=== PATIENT | female | born 1950 | race Caucasian/White ===

== ENCOUNTER 2016-10-17 10:20 | Emergency (ER) | payer OTHER ==
[~2016-10-17] VITALS: Ht 161.3 cm; Wt 73.9 kg
[2016-10-17] MEDS ORDERED: CLAR10CA3 PO (10:31)
[2016-10-17] MEDS ORDERED: ZOLO50TA PO (10:31)
[2016-10-17] MEDS ORDERED: ATOR1TAB19 PO (10:31)
--- NOTE | 2016-10-17 11:04 | REP ---
Clinical: Trauma . Findings: Age-related atrophy and microvascular ischemic changes are appreciated. The ventricles and sulci are symmetric. Ramos-white differentiation is maintained. There is no evidence for acute intracranial hemorrhage, mass/mass effect, pathology or infarction. No extra-axial fluid collection. Calvarium is intact. Partial opacification of the sinuses noted. There is a very small scalp hematoma overlying the left occipital bone posteriorly. Impression: Age related atrophy and microvascular ischemic changes. No acute intracranial hemorrhage, infarction, or mass/mass effect. This is a partial sinusitis. Very small posterior left scalp hematoma. Signed by Michael Vargas MD 10/17/2016 10:55 A
--- NOTE | 2016-10-17 11:07 | REP ---
Clinical: Trauma. Technique: Axial noncontrast images from the skull base to the thoracic inlet with coronal and sagittal re-formations Findings: Normal alignment and lordosis is maintained. This moderate early advanced multilevel degenerative disc osteophyte complexes are noted. Cervical vertebral bodies including transverse processes and spinous processes are intact and there is no evidence for acute fracture / compression injury or subluxation. Spinal canal is patent. Posterior elements are intact. Paravertebral soft tissues are normal. Impression: Moderate to early advanced multilevel degenerative changes. No evidence for acute pathology or trauma/injury. Signed by Michael Vargas MD 10/17/2016 10:58 A
--- NOTE | 2016-10-17 11:27 | ED PDOC ---
Post-Departure Follow-Up 2 gilmar were placed after irrigation of wound by nursing. The patient tolerated procedure well. Wound is about 2 cm in length, bleeding controlled. Wound irrigated moderately by nursing. CHERELLE PEARL MD Oct 17, 2016 11:27
[2016-10-17] MEDS ORDERED: ACETAMINOPHEN TAB 650MG DOSE (2X325MG) PO ONE (11:30)
[2016-10-17 11:37] VITALS: BP 144/62
== END 2016-10-17 11:39 | disposition home or self-care (01) ==
LOC: EDBD 10:20 → M ED 11:33
DX: S01.01XA Laceration without foreign body of scalp, initial encounter (principal); W01.198A Fall on same level from slipping, tripping and stumbling with subsequent striking against other object, initial encounter; Y92.091 Bathroom in other non-institutional residence as the place of occurrence of the external cause; Y93.01 Activity, walking, marching and hiking; Y99.9 Unspecified external cause status

== ENCOUNTER → 2018-04-18 | Outpatient (REF) | payer MEDICARE, OTHER ==
[2018-04-18 19:39] LABS: RHEUMATOID FACTOR QUANT < 10.0 IU/ML (<15.0)
[2018-04-20 14:20] LABS: ANTI DOUBLE STRAND-DNA AB 6 IU/mL (0-9); ANTINUCLEAR ANTIBODIES DIRECT Positive (Negative); Lyme Disease IgG/IgM Antibodie <0.91 ISR (0.00-0.90); Lyme Disease IgM Ab Quantitati <0.80 index (0.00-0.79); RNP ANTIBODIES <0.2 AI (0.0-0.9); SJOGREN'S ANTI SS-A <0.2 AI (0.0-0.9); SJOGREN'S ANTI SS-B <0.2 AI (0.0-0.9); SMITH ANTIBODIES <0.2 AI (0.0-0.9)
[2018-04-21 00:10] LABS: CYCLIC CITRULLINATED PEPTIDE 16 units (0-19)
== END ==
LOC: M LAB REF 18:43
DX: M25.50 Pain in unspecified joint (principal); R73.01 Impaired fasting glucose; S70.261A Insect bite (nonvenomous), right hip, initial encounter; W18.30XA Fall on same level, unspecified, initial encounter; Y92.009 Unspecified place in unspecified non-institutional (private) residence as the place of occurrence of the external cause
CPT/HCPCS: 86038

== ENCOUNTER → 2018-05-20 | Outpatient (CLI) | payer MEDICARE | LOC: M RAD 10:01 | DX: Z12.31 Encounter for screening mammogram for malignant neoplasm of breast (principal) | CPT/HCPCS: 77067 ==

== ENCOUNTER → 2018-09-13 | Outpatient (CLI) | payer MEDICARE ==
[~2018-09-13] MED LIST: ATOR1TAB19 PO; CLAR10CA3 PO; ZOLO50TA PO
[2018-09-13 15:45] LABS: BASO # 0.1 10^3/uL (0.0-0.2); BASO % 0.6 % (0.0-1.0); EOS # 0.2 10^3/uL (0.0-0.50); EOS % 2.8 % (0.0-3.0); HEMATOCRIT 44.2 % (36.0-47.0); HEMOGLOBIN 14.1 g/dl (12.0-15.5); LYMPH # 2.6 10^3/uL (1.5-4.5); LYMPH % 32.7 % (24.0-44.0); MEAN CORPUSCULAR HEMOGLOBIN 28.7 pg (27.0-33.0); MEAN CORPUSCULAR HGB CONC 31.9 g/dl (32.0-36.5); MONO # 0.4 10^3/uL (0.0-0.8); MONO % 4.7 % (0.0-5.0); NEUTROPHILS # 4.7 10^3/uL (1.8-7.7); NEUTROPHILS % 58.9 % (36.0-66.0); PLATELET COUNT, AUTOMATED 321 10^3/uL (150-450); RED BLOOD COUNT 4.91 10^6/uL (4.00-5.40); WHITE BLOOD COUNT 7.9 10^3/uL (4.0-10.0)
--- NOTE | 2018-09-13 15:57 | REP ---
Chest two views HISTORY: Wheezing Comparison: None An increase in interstitial markings is present in the perihilar areas. The heart is normal in size. The pulmonary vasculature is normal in appearance. The bony structure is intact. IMPRESSION: Bronchiolitis. Electronically Signed by Shivam Groves MD 09/13/2018 03:50 P
[2018-09-13 16:05] LABS: ALT/SGPT 26 U/L (12-78); BILIRUBIN,TOTAL 0.6 MG/DL (0.2-1.0); BLOOD UREA NITROGEN 19 MG/DL (7-18); C REACTIVE PROTEIN QUANTITATIV < 0.30 MG/DL (0.00-0.30); CALCIUM LEVEL 9.3 MG/DL (8.8-10.2); CARBON DIOXIDE LEVEL 29 MEQ/L (21-32); CHLORIDE LEVEL 107 MEQ/L (98-107); CREATININE FOR GFR 0.74 MG/DL (0.55-1.30); GLOMERULAR FILTRATION RATE > 60.0 (>45); GLUCOSE, FASTING 89 MG/DL (70-100); POTASSIUM SERUM 4.4 MEQ/L (3.5-5.1); RHEUMATOID FACTOR QUANT < 10.0 IU/ML (<15.0); SODIUM LEVEL 141 MEQ/L (136-145); TOTAL PROTEIN 7.2 GM/DL (6.4-8.2)
[2018-09-13 16:13] LABS: ERYTHROCYTE SEDIMENTATION RATE 8 mm/hr (0-30)
[2018-09-16 00:09] LABS: ANA (HEP2) Positive (.)
== END ==
LOC: M LAB 14:54
PROVIDERS: ATTEND Internal Medicine Rheumatology
DX: M19.071 Primary osteoarthritis, right ankle and foot (principal); M19.072 Primary osteoarthritis, left ankle and foot; M25.774 Osteophyte, right foot; M25.775 Osteophyte, left foot; M25.50 Pain in unspecified joint; R76.8 Other specified abnormal immunological findings in serum
CPT/HCPCS: 36415; 73630; 80053; 85025; 85652; 86038; 86140; 86431; G0463

== ENCOUNTER → 2019-06-13 | Outpatient (CLI) | payer MEDICARE ==
--- NOTE | 2019-06-13 12:06 | REPMRS ---
Patient History The patient states she has not had a clinical breast exam in over a year. Family history of colorectal cancer at age 50 or over in maternal grandfather. Patient had a stereo breast bx years ago, doesn't remember which side 3D TOMOSYNTHESIS WAS PERFORMED. The [facility] Benavides lifetime risk for breast cancer is 5.1%. Digital Mammo Screening Bilat: June 13, 2019 - Exam #: [id number] Bilateral CC and MLO view(s) were taken. Technologist: Stephany Osuna, Technologist Prior study comparison: May 20, 2018, bilateral digital mammo screening bilat performed at [facility]. May 19, 2017, digital woman screen mammo, performed at [facility]. FINDINGS: The breast tissue is heterogeneously dense. This may lower the sensitivity of mammography. There has been no change in the appearance of the mammogram from the prior studies. There is a moderate amount of residual fibroglandular tissue which is fairly symmetric. There is no interval development of dominant mass, areas of architectural distortion, or clustered microcalcification typical of malignancy. Stable benign appearing calcifications are present on the right. No significant changes when compared with prior studies. Assessment: BI-RADS/ACR category 1 mammogram. Negative Mammogram. Recommendation Routine screening mammogram in 1 year (for women over age 40). This mammogram was interpreted with the aid of an FDA-approved computer-aided dectection system. Electronically Signed By: Sarath Ramos MD 06/13/19 [id number]
== END ==
LOC: M RAD 10:43
PROVIDERS: ATTEND Internal Medicine
DX: Z12.31 Encounter for screening mammogram for malignant neoplasm of breast (principal); Z80.0 Family history of malignant neoplasm of digestive organs

== ENCOUNTER → 2019-08-18 | Outpatient (REF) | payer MEDICARE ==
[2019-08-22 00:06] LABS: Lyme Disease IgG/IgM Antibodie <0.91 ISR (0.00-0.90); Lyme Disease IgM Ab Quantitati <0.80 index (0.00-0.79)
== END ==
LOC: M LAB REF 17:50
PROVIDERS: ATTEND Internal Medicine
DX: Z11.59 Encounter for screening for other viral diseases (principal)

== ENCOUNTER → 2020-01-18 | Outpatient (REF) | payer MEDICARE | LOC: M LAB REF 17:04 | PROVIDERS: ATTEND Dermatology | DX: D22.72 Melanocytic nevi of left lower limb, including hip (principal); L57.0 Actinic keratosis | CPT/HCPCS: 11102; 11103; 11200; 17000; 17003; 88305; G0463 ==

== ENCOUNTER → 2020-06-12 | Outpatient (CLI) | payer MEDICARE ==
--- NOTE | 2020-06-12 14:09 | REPMRS ---
Patient History The patient states she has not had a clinical breast exam in over a year. Patient has history of other cancer at age 61. Family history of colorectal cancer at age 50 or over in maternal grandfather. Benign stereotactic core biopsy of the right breast, December 26, 2007. No Hormone Replacement Therapy 3D TOMOSYNTHESIS WAS PERFORMED. The [facility] lifetime risk for breast cancer is 4.8%. Volpara breast density b. Digital Woman Screen Mammo: June 12, 2020 - Exam #: [id number] Bilateral CC and MLO view(s) were taken. Technologist: Deandra Pina, Technologist Prior study comparison: June 13, 2019, bilateral digital mammo screening bilat, performed at [facility]. May 20, 2018, bilateral digital mammo screening bilat, performed at [facility]. FINDINGS: There are scattered fibroglandular densities. There has been no change in the appearance of the mammogram from the prior studies. There is a mild amount of residual fibroglandular tissue which is fairly symmetric. There is no interval development of dominant mass, architectural distortion, or clustered microcalcification suggestive of malignancy. Assessment: BI-RADS/ACR category 1 mammogram. Negative Mammogram. Recommendation Routine screening mammogram in 1 year (for women over age 40). This mammogram was interpreted with the aid of an FDA-approved computer-aided dectection system. Electronically Signed By: Sarath Ramos MD 06/12/20 0509
--- NOTE | 2020-06-12 15:45 | DEXA ---
INDICATION: M85.80 DISORDER OF BONE. COMPARISON: 05/19/2017. TECHNIQUE: Bone density was measured using dual-energy x-ray absorptiometry (DEXA). FINDINGS: AP SPINE L1-L4 BMD 1.241 g/cm2 Young Adult T-Score 0.4 Age Matched Z-Score 2.0. LT FEMUR, TOTAL BMD 1.033 g/cm2 Young Adult T-Score 0.2 Age Matched Z-Score 1.5. LT NECK BMD 0.863 g/cm2 Young Adult T-Score -1.3 Age Matched Z-Score 0.3. RT FEMUR, TOTAL BMD 1.00 g/cm2 Young Adult T-Score -0.1 Age Matched Z-Score 1.3. RT NECK BMD 0.847 g/cm2 Young Adult T-Score -1.4 Age Matched Z-Score 0.2. IMPRESSION: There is normal bone density of the spine. There is low bone density of the left hip. There is low bone density of the right hip. The density of the spine has decreased 2.1% since the initial exam on 05/19/2017. The density of the left hip has increased 3.8% since initial exam on 05/19/2017. The density of the right hip has decreased 2.3% since the initial exam on 05/19/2017. FOLLOW-UP: Recommendation for the next bone density exam: 2 years. <Electronically signed by Sarath Ramos > 06/12/20 [id number]
== END ==
LOC: M WHC 12:30
PROVIDERS: ATTEND Internal Medicine
DX: Z12.31 Encounter for screening mammogram for malignant neoplasm of breast (principal); Z80.0 Family history of malignant neoplasm of digestive organs; M85.811 Other specified disorders of bone density and structure, right shoulder; M85.852 Other specified disorders of bone density and structure, left thigh

== ENCOUNTER → 2020-06-13 | Outpatient (REF) | payer MEDICARE | LOC: M LAB REF 16:18 | PROVIDERS: ATTEND Internal Medicine | DX: M25.551 Pain in right hip (principal) ==

== ENCOUNTER → 2020-11-22 | Outpatient (CLI) | payer MEDICARE ==
--- NOTE | 2020-11-22 12:37 | REP ---
INDICATION: PAIN COMPARISON: None. TECHNIQUE: AP and lateral left femur. FINDINGS: There is no evidence of acute fracture, dislocation, or intrinsic bone disease.There is mild joint space narrowing and subchondral sclerosis at the hip joint and the medial knee joint. Mild tendinous calcifications are seen at the greater trochanter, ilium and ischium. IMPRESSION: No fracture or dislocation. Mild degenerative changes hip and knee. <Electronically signed by Sarath Ramos > 11/22/20 [id number]
--- NOTE | 2020-11-22 12:42 | REP ---
INDICATION: PAIN COMPARISON: 09/13/2018. TECHNIQUE: Four views left foot. FINDINGS: There is no evidence of acute fracture, dislocation, or intrinsic bone disease.There is mild inferior calcaneal spurring. There is mild dorsal navicular spurring. Mild narrowing and subchondral sclerosis at the 1st metatarsophalangeal joint, with mild hypertrophic spurring and subcortical cystic change again seen in the head of the 1st metatarsal. IMPRESSION: No fracture or dislocation. Stable degenerative changes. <Electronically signed by Sarath Ramos > 11/22/20 1236
== END ==
LOC: M WUC 11:17
PROVIDERS: ATTEND Internal Medicine
DX: M25.552 Pain in left hip (principal); M25.572 Pain in left ankle and joints of left foot; M77.32 Calcaneal spur, left foot; M19.072 Primary osteoarthritis, left ankle and foot; M16.12 Unilateral primary osteoarthritis, left hip; M17.12 Unilateral primary osteoarthritis, left knee

== ENCOUNTER 2020-12-01 13:19 | Emergency (ER) | payer MEDICARE ==
[2020-12-01] MEDS ORDERED: MONT10TA10 PO (13:38)
[2020-12-01] MEDS ORDERED: PRED20TA PO (13:38)
[2020-12-01] MEDS ORDERED: ROSU5TAB5 PO (13:38)
[2020-12-01] MEDS ORDERED: MORPHINE 2 MG/ML 1ML VIAL (J2270) IV PRN (13:45)
[2020-12-01] MEDS ORDERED: NITROGLYCERIN 0.4 MG SUBL TABLET SL PRN (13:45)
[2020-12-01 13:50] LABS: BASO % 0.5 % (0.0-1.0); EOS # 0.2 10^3/uL (0.0-0.5); EOS % 1.8 % (0.0-3.0); HEMATOCRIT 44.6 % (36.0-47.0); HEMOGLOBIN 14.4 g/dl (12.0-15.5); LYMPH # 2.6 10^3/uL (1.5-5.0); LYMPH % 31.2 % (24.0-44.0); MEAN CORPUSCULAR HEMOGLOBIN 29.4 pg (27.0-33.0); MEAN CORPUSCULAR HGB CONC 32.3 g/dl (32.0-36.5); MEAN CORPUSCULAR VOLUME 91.2 fl (80.0-96.0); MONO # 0.4 10^3/uL (0.0-0.8); MONO % 5.1 % (2.0-8.0); NEUTROPHILS # 5.1 10^3/uL (1.5-8.5); PLATELET COUNT, AUTOMATED 340 10^3/uL (150-450); RED BLOOD COUNT 4.89 10^6/uL (4.00-5.40); WHITE BLOOD COUNT 8.4 10^3/uL (4.0-10.0)
[2020-12-01 14:01] LABS: INR 0.89; PROTHROMBIN TIME 12.2 SECONDS (12.5-14.3)
[2020-12-01 14:02] LABS: PARTIAL THROMBOPLASTIN TIME 24.7 SECONDS (24.2-38.5)
--- NOTE | 2020-12-01 14:11 | REP ---
INDICATION: CHEST PAIN. COMPARISON: None. TECHNIQUE: Portable FINDINGS: The technique utilized in obtaining the radiograph has magnified the cardiac silhouette and accentuated the interstitial markings. The superior mediastinal structures are midline. The cardiac silhouette is unremarkable in size, shape, and position. The diaphragmatic surfaces of the lungs are regular, and the costophrenic angles are clear. The pulmonary dominguez are clear. The imaged osseous structures are intact. IMPRESSION: There is no acute cardiopulmonary disease. <Electronically signed by Chay Mclaughlin > 12/01/20 [id number]
[2020-12-01 14:33] LABS: BLOOD UREA NITROGEN 16 MG/DL (7-18); CALCIUM LEVEL 8.9 MG/DL (8.8-10.2); CARBON DIOXIDE LEVEL 29 MEQ/L (21-32); CHLORIDE LEVEL 110 MEQ/L (98-107); CK-MB VALUE MASS < 1.0 NG/ML (<3.6); CPK CREATINE PHOSPHOKINASE 100 U/L (26-192); CREATININE FOR GFR 0.57 MG/DL (0.55-1.30); GLOMERULAR FILTRATION RATE > 60.0 (>45); GLUCOSE, FASTING 92 MG/DL (70-100); POTASSIUM SERUM 3.2 MEQ/L (3.5-5.1); SODIUM LEVEL 143 MEQ/L (136-145); TROPONIN I < 0.02 NG/ML (< 0.10)
[2020-12-01] MEDS ORDERED: POTASSIUM CHLORIDE 10 MEQ SR TABLET PO ONE (14:40)
[2020-12-01] MEDS ORDERED: ISOVUE-370 76% 100ML VIAL As Ordered ONE (14:57)
[2020-12-01] MEDS ORDERED: OMEP40CA97 PO (15:14)
--- NOTE | 2020-12-01 15:30 | REP ---
INDICATION: CP r/o dissection COMPARISON: None. TECHNIQUE: CT angiography of the chest attention aorta after the intravenous administration of 75 cc Isovue 370 FINDINGS: Menlo artifact is seen arising from the inferior vena cava secondary to high concentration of iodinated intravenous contrast. This causes limitation of evaluation of the ascending aorta and aortic arch. With that There is excellent visualization of the pulmonary arterial vasculature as well. No focal filling defects are present that would be considered consistent with acute pulmonary emboli. There is no mediastinal or hilar adenopathy. There no pleural or pericardial effusions. The imaged upper abdomen and imaged osseous structures are within normal limits. Evaluation of the lung dominguez shows no abnormal nodules, masses, or opacities. Exception, there is no evidence of an intrathoracic aortic abnormality. IMPRESSION: CT findings, as described above, within normal limits with limitations as described above. <Electronically signed by Chay Mclaughlin > 12/01/20 [id number]
[2020-12-01 20:11] LABS: CK-MB VALUE MASS < 1.0 NG/ML (<3.6); CPK CREATINE PHOSPHOKINASE 110 U/L (26-192); MB/CK RELATIVE INDEX 0.91 (< OR =4); TROPONIN I < 0.02 NG/ML (< 0.10)
[2020-12-01 20:30] VITALS: BP 128/68
--- NOTE | 2020-12-02 19:59 | ECGEPIP ---
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
== END 2020-12-01 21:00 | disposition home or self-care (01) ==
LOC: M ED 13:19 → EDBD 13:19 → M ED 21:00
DX: R07.9 Chest pain, unspecified (principal); R78.5 Finding of other psychotropic drug in blood; J45.909 Unspecified asthma, uncomplicated; F32.9 Major depressive disorder, single episode, unspecified; Z87.891 Personal history of nicotine dependence; Z82.49 Family history of ischemic heart disease and other diseases of the circulatory system; Z79.899 Other long term (current) drug therapy; Z88.8 Allergy status to other drugs, medicaments and biological substances; Z88.6 Allergy status to analgesic agent
CPT/HCPCS: 71045; 71275; 80048; 82550; 82553; 84443; 84484; 85025; 85610; 85730; 93005; 93041; 94760; 99285; Q9967

== ENCOUNTER → 2021-07-17 | Outpatient (CLI) | payer MEDICARE ==
[~2021-07-17] MED LIST changes: +MONT10TA97 PO; +OMEP40CA4 PO; +PRED20TA PO; +ROSU5TAB5 PO
== END ==
LOC: M WHC 12:21
PROVIDERS: ATTEND Internal Medicine
DX: Z12.31 Encounter for screening mammogram for malignant neoplasm of breast (principal); Z80.0 Family history of malignant neoplasm of digestive organs

== ENCOUNTER → 2021-08-27 | Outpatient (CLI) | payer MEDICARE ==
[~2021-08-27] MED LIST changes: +GASTROGRAFIN SOLUTION 30ML (Q9963) As Ordered ONE; +ISOVUE-370 76% 100ML VIAL As Ordered ONE
[2021-08-27 13:53] LABS: BASO # 0.1 10^3/uL (0.0-0.2); BASO % 0.6 % (0.0-1.0); EOS # 0.2 10^3/uL (0.0-0.5); HEMOGLOBIN 13.8 g/dl (12.0-15.5); LYMPH # 2.3 10^3/uL (1.5-5.0); LYMPH % 28.7 % (24.0-44.0); MEAN CORPUSCULAR HEMOGLOBIN 28.6 pg (27.0-33.0); MEAN CORPUSCULAR HGB CONC 32.1 g/dl (32.0-36.5); MONO # 0.3 10^3/uL (0.0-0.8); MONO % 4.3 % (2.0-8.0); NEUTROPHILS % 63.1 % (36.0-66.0); PLATELET COUNT, AUTOMATED 295 10^3/uL (150-450); RED BLOOD COUNT 4.83 10^6/uL (4.00-5.40); WHITE BLOOD COUNT 7.9 10^3/uL (4.0-10.0)
[2021-08-27 14:12] LABS: ALT/SGPT 31 U/L (12-78); BILIRUBIN,TOTAL 0.6 MG/DL (0.2-1.0); BLOOD UREA NITROGEN 12 MG/DL (7-18); CALCIUM LEVEL 9.9 MG/DL (8.8-10.2); CARBON DIOXIDE LEVEL 30 MEQ/L (21-32); CHLORIDE LEVEL 103 MEQ/L (98-107); CREATININE FOR GFR 0.76 MG/DL (0.55-1.30); GLOMERULAR FILTRATION RATE > 60.0 (>45); GLUCOSE, FASTING 99 MG/DL (70-100); POTASSIUM SERUM 4.1 MEQ/L (3.5-5.1); SODIUM LEVEL 140 MEQ/L (136-145); TOTAL PROTEIN 7.7 GM/DL (6.4-8.2)
== END ==
LOC: M RAD 13:17
PROVIDERS: ATTEND Physician Assistant
DX: R10.31 Right lower quadrant pain (principal); M54.50 Low back pain, unspecified; N28.1 Cyst of kidney, acquired; K57.30 Diverticulosis of large intestine without perforation or abscess without bleeding; Z90.710 Acquired absence of both cervix and uterus
CPT/HCPCS: 36415; 74177; 80053; 85025; 87086; Q9963; Q9967

== ENCOUNTER → 2022-02-04 | Outpatient (REF) | payer MEDICARE ==
[~2022-02-04] MED LIST changes: -GASTROGRAFIN SOLUTION 30ML (Q9963) As Ordered ONE; -ISOVUE-370 76% 100ML VIAL As Ordered ONE
== END ==
LOC: M SFHCDERM 13:56
PROVIDERS: ATTEND Physician Assistant
DX: L57.0 Actinic keratosis (principal)
CPT/HCPCS: 11102; 11103; 17000; 17110; 88305; G0463

== ENCOUNTER → 2022-03-18 | Outpatient (CLI) | payer MEDICARE ==
[2022-03-18 12:50] LABS: BASO # 0.1 10^3/uL (0.0-0.2); BASO % 0.5 % (0.0-1.0); EOS # 0.6 10^3/uL (0.0-0.5); EOS % 5.9 % (0.0-3.0); HEMATOCRIT 48.2 % (36.0-47.0); HEMOGLOBIN 15.1 g/dl (12.0-15.5); LYMPH # 2.4 10^3/uL (1.5-5.0); MEAN CORPUSCULAR HEMOGLOBIN 28.5 pg (27.0-33.0); MEAN CORPUSCULAR HGB CONC 31.3 g/dl (32.0-36.5); MEAN CORPUSCULAR VOLUME 90.9 fl (80.0-96.0); MONO # 0.3 10^3/uL (0.0-0.8); MONO % 3.2 % (2.0-8.0); NEUTROPHILS # 6.6 10^3/uL (1.5-8.5); NEUTROPHILS % 66.2 % (36.0-66.0); PLATELET COUNT, AUTOMATED 338 10^3/uL (150-450); WHITE BLOOD COUNT 9.9 10^3/uL (4.0-10.0)
== END ==
LOC: M LAB 11:18
PROVIDERS: ATTEND Ophthalmology
DX: J30.1 Allergic rhinitis due to pollen (principal); R53.81 Other malaise

== ENCOUNTER → 2022-06-29 | Outpatient (CLI) | payer MEDICARE ==
[~2022-06-29] MED LIST changes: +ACET-1349 PO; +ADV250INH INH; +ALLE1TAB23 PO; +CALC500C16 PO; +DOXY20TA4 PO; +FLON1SPR; +MULTIVITAMIN PO; +ROSU10TA6 PO; +ULTR5TAB PO; +VENTAER INH; +VITA200016 PO; +[UNRECOGNIZED DRUG - OTHER] PO
== END ==
LOC: M LABSMTC 10:07
PROVIDERS: ATTEND Anesthesiology
DX: Z01.818 Encounter for other preprocedural examination (principal); Z11.52 Encounter for screening for COVID-19

== ENCOUNTER 2022-07-02 07:31 | Day surgery (SDC) | payer MEDICARE ==
[~2022-07-02] VITALS: Ht 160 cm; Wt 76.7 kg
[~2022-07-02 07:31] MED LIST changes: +BSS IRRIG/VANCO(10MG)/TOBRA(5MG)/EPINEPH(1:1000-0.5CC)500ML BAG-ORONLY IR ONE; +CEFUROXIME 1MG/0.1ML INTRACAMERAL INJ As Ordered ONE; +CYCLOPENTOLATE 1% OPHTH SOLN 2 ML BTL OD SCH; +LIDOCAINE 1% SDV 5ML VIAL As Ordered ONE; +LIDOCAINE 3.5 % 1ML OPHTH TOPICAL GEL OU ONE; +MIDAZOLAM INJ 2MG/2ML VIAL (J2250 PER 1MG) As Ordered ONE; +OFLOXACIN 0.3 % (OCUFLOX) OPTH SOL 5ML OD ONE; +PHENYLEPHRINE 10% OPHTH SOL 5ML OD PRN; +PHENYLEPHRINE 2.5% OPHTH SOL 2ML OD SCH; +TROPICAMIDE 1% OPHTH SOLN 15ML OD SCH; +fentaNYL 100 MCG/2 ML INJECTION As Ordered ONE
[2022-07-02 08:38] VITALS: BP 141/67
== END 2022-07-02 09:00 | disposition home or self-care (01) ==
LOC: M SDC 07:31
PROVIDERS: ATTEND Ophthalmology
DX: H25.11 Age-related nuclear cataract, right eye (principal); J45.909 Unspecified asthma, uncomplicated; E78.5 Hyperlipidemia, unspecified; G43.909 Migraine, unspecified, not intractable, without status migrainosus; Z79.899 Other long term (current) drug therapy; Z87.891 Personal history of nicotine dependence; F32.A Depression, unspecified; Z79.51 Long term (current) use of inhaled steroids
CPT/HCPCS: 66984; 92015; J0697; J2250; J3010; V2788

== ENCOUNTER → 2022-07-06 | Outpatient (CLI) | payer MEDICARE ==
[~2022-07-06] MED LIST changes: -BSS IRRIG/VANCO(10MG)/TOBRA(5MG)/EPINEPH(1:1000-0.5CC)500ML BAG-ORONLY IR ONE; -CEFUROXIME 1MG/0.1ML INTRACAMERAL INJ As Ordered ONE; -CYCLOPENTOLATE 1% OPHTH SOLN 2 ML BTL OD SCH; -LIDOCAINE 1% SDV 5ML VIAL As Ordered ONE; -LIDOCAINE 3.5 % 1ML OPHTH TOPICAL GEL OU ONE; -MIDAZOLAM INJ 2MG/2ML VIAL (J2250 PER 1MG) As Ordered ONE; -OFLOXACIN 0.3 % (OCUFLOX) OPTH SOL 5ML OD ONE; -PHENYLEPHRINE 10% OPHTH SOL 5ML OD PRN; -PHENYLEPHRINE 2.5% OPHTH SOL 2ML OD SCH; -TROPICAMIDE 1% OPHTH SOLN 15ML OD SCH; -fentaNYL 100 MCG/2 ML INJECTION As Ordered ONE
== END ==
LOC: M LABSMTC 10:31
PROVIDERS: ATTEND Anesthesiology
DX: Z01.812 Encounter for preprocedural laboratory examination (principal); Z11.52 Encounter for screening for COVID-19

== ENCOUNTER 2022-07-08 07:22 | Day surgery (SDC) | payer MEDICARE ==
[~2022-07-08] VITALS: Ht 160 cm; Wt 77.5 kg
[~2022-07-08 07:22] MED LIST changes: +BSS IRRIG/VANCO(10MG)/TOBRA(5MG)/EPINEPH(1:1000-0.5CC)500ML BAG-ORONLY IR ONE; +CEFUROXIME 1MG/0.1ML INTRACAMERAL INJ As Ordered ONE; +CYCLOPENTOLATE 1% OPHTH SOLN 2ML BTL OS SCH; +LIDOCAINE 1% 1ML PF SYRINGE (OR EYE CASES) As Ordered ONE; +LIDOCAINE 3.5 % 1ML OPHTH TOPICAL GEL OU ONE; +OFLOXACIN 0.3 % (OCUFLOX) OPTH SOL 5ML OS ONE; +PHENYLEPHRINE 10% OPHTH SOL 5ML OS PRN; +PHENYLEPHRINE 2.5% OPHTH SOL 2ML OS SCH; +TROPICAMIDE 1% OPHTH SOLN 15ML OS SCH
[2022-07-08] MEDS ORDERED: ONDANSETRON 4MG 2ML VIAL As Ordered ONE (08:16)
[2022-07-08] MEDS ORDERED: MIDAZOLAM INJ 2MG/2ML VIAL (J2250 PER 1MG) As Ordered ONE (08:28)
[2022-07-08] MEDS ORDERED: fentaNYL 100 MCG/2 ML INJECTION As Ordered ONE ×2 (08:28→10:53)
[2022-07-08 08:41] VITALS: BP 131/81
== END 2022-07-08 09:12 | disposition home or self-care (01) ==
LOC: M SDC 07:22
PROVIDERS: ATTEND Ophthalmology
DX: H25.12 Age-related nuclear cataract, left eye (principal); E78.5 Hyperlipidemia, unspecified; J45.909 Unspecified asthma, uncomplicated; Z90.89 Acquired absence of other organs; Z90.710 Acquired absence of both cervix and uterus; Z79.899 Other long term (current) drug therapy; Z79.51 Long term (current) use of inhaled steroids; Z88.6 Allergy status to analgesic agent
CPT/HCPCS: 66984; 92015; J0697; J2250; J2405; J3010; V2788

== ENCOUNTER → 2022-07-21 | Outpatient (CLI) | payer MEDICARE ==
[~2022-07-21] MED LIST changes: -BSS IRRIG/VANCO(10MG)/TOBRA(5MG)/EPINEPH(1:1000-0.5CC)500ML BAG-ORONLY IR ONE; -CEFUROXIME 1MG/0.1ML INTRACAMERAL INJ As Ordered ONE; -CYCLOPENTOLATE 1% OPHTH SOLN 2ML BTL OS SCH; -LIDOCAINE 1% 1ML PF SYRINGE (OR EYE CASES) As Ordered ONE; -LIDOCAINE 3.5 % 1ML OPHTH TOPICAL GEL OU ONE; -OFLOXACIN 0.3 % (OCUFLOX) OPTH SOL 5ML OS ONE; -PHENYLEPHRINE 10% OPHTH SOL 5ML OS PRN; -PHENYLEPHRINE 2.5% OPHTH SOL 2ML OS SCH; -TROPICAMIDE 1% OPHTH SOLN 15ML OS SCH
== END ==
LOC: M WHC 13:00
PROVIDERS: ATTEND Internal Medicine
DX: Z12.31 Encounter for screening mammogram for malignant neoplasm of breast (principal)

== ENCOUNTER → 2022-08-07 | Outpatient (REF) | payer MEDICARE ==
[2022-08-07 17:03] LABS: PERCENT SATURATION 20.5 % (13.2-45.0)
[2022-08-07 17:06] LABS: FERRITIN 73.9 NG/ML (7.3-270.7)
== END ==
LOC: M LAB REF 16:22
PROVIDERS: ATTEND Internal Medicine
DX: D64.9 Anemia, unspecified (principal)

== ENCOUNTER → 2022-08-17 | Outpatient (REF) | payer MEDICARE | LOC: M SFHCDERM 13:56 | PROVIDERS: ATTEND Physician Assistant | DX: L57.0 Actinic keratosis (principal) ==

== ENCOUNTER → 2022-12-10 | Outpatient (REF) | payer MEDICARE | LOC: M LAB REF 10:00 | PROVIDERS: ATTEND Internal Medicine | DX: R60.9 Edema, unspecified (principal) ==

== ENCOUNTER → 2023-02-08 | Outpatient (REF) | payer MEDICARE ==
[2023-02-10 23:07] LABS: ANTI DOUBLE STRAND-DNA AB 3 IU/mL (0-9); ANTINUCLEAR ANTIBODIES DIRECT Positive (Negative); CYCLIC CITRULLINATED PEPTIDE 7 units (0-19); RNP ANTIBODIES <0.2 AI (0.0-0.9); SJOGREN'S ANTI SS-A <0.2 AI (0.0-0.9); SJOGREN'S ANTI SS-B <0.2 AI (0.0-0.9); SMITH ANTIBODIES <0.2 AI (0.0-0.9)
== END ==
LOC: M LAB REF 13:57
PROVIDERS: ATTEND Internal Medicine
DX: M79.10 Myalgia, unspecified site (principal)

== ENCOUNTER → 2023-03-18 | Outpatient (CLI) | payer MEDICARE | LOC: M RAD 11:26 | PROVIDERS: ATTEND Physician Assistant | DX: J18.8 Other pneumonia, unspecified organism (principal) ==

== ENCOUNTER → 2023-04-19 | Outpatient (CLI) | payer MEDICARE ==
[~2023-04-19] MED LIST changes: +ALIG4CAP PO; +DIPH2.5T15 PO; +HYDR200T46 PO; +IPRA6SP NARES; +LEVA1.2519; +MICR1TAB5 PO; +MULT-90 PO; +ROSU20TA61 PO; +SPIR1CAP INH; +VIVISCAL PO
[2023-04-19 12:03] LABS: BLOOD UREA NITROGEN 15 MG/DL (9-23); GLOMERULAR FILTRATION RATE > 60.0 (>39)
== END ==
LOC: M LAB 11:04
PROVIDERS: ATTEND Surgery
DX: R19.7 Diarrhea, unspecified (principal)

== ENCOUNTER 2023-05-05 09:47 | Day surgery (SDC) | payer MEDICARE ==
[~2023-05-05] VITALS: Ht 160 cm; Wt 79.0 kg
[~2023-05-05 09:47] MED LIST changes: +NS 1,000 ML IV ONE
[2023-05-05] MEDS ORDERED: propofoL 200 MG/20 ML VIAL As Ordered ONE (11:38)
[2023-05-05] MEDS ORDERED: LIDOCAINE 2% 100MG/5ML SDV (FOR ANES.) As Ordered ONE (11:38)
[2023-05-05 12:07] VITALS: TEMP 97.8
[2023-05-05 12:25] VITALS: BP 122/74; O2SAT 95
== END 2023-05-05 12:42 | disposition home or self-care (01) ==
LOC: M OPP 09:47
PROVIDERS: ATTEND Surgery
DX: D12.5 Benign neoplasm of sigmoid colon (principal); K63.5 Polyp of colon; K57.30 Diverticulosis of large intestine without perforation or abscess without bleeding; Z79.02 Long term (current) use of antithrombotics/antiplatelets; Z79.1 Long term (current) use of non-steroidal anti-inflammatories (NSAID); Z79.51 Long term (current) use of inhaled steroids; Z79.52 Long term (current) use of systemic steroids; Z79.899 Other long term (current) drug therapy; Z88.6 Allergy status to analgesic agent

== ENCOUNTER → 2023-06-25 | Outpatient (REF) | payer MEDICARE ==
[~2023-06-25] MED LIST changes: -NS 1,000 ML IV ONE
[2023-06-26 23:06] LABS: ANA (HEP2) Negative (.)
== END ==
LOC: M LAB REF 11:46
PROVIDERS: ATTEND Internal Medicine
DX: M25.50 Pain in unspecified joint (principal); M79.10 Myalgia, unspecified site

== ENCOUNTER 2023-06-29 12:28 | Emergency (ER) | payer MEDICARE ==
[~2023-06-29] VITALS: Ht 160 cm; Wt 80.9 kg
[2023-06-29 12:28] VITALS: BP 150/82; TEMP 99.4; O2SAT 94
[~2023-06-29 12:28] MED LIST changes: -ALLE1TAB23 PO; +FEXO-157 PO
[2023-06-29] MEDS ORDERED: PRED20TA PO (15:38)
== END 2023-06-29 15:54 | disposition home or self-care (01) ==
LOC: M ED 12:28
DX: J06.9 Acute upper respiratory infection, unspecified (principal); J45.901 Unspecified asthma with (acute) exacerbation; E78.5 Hyperlipidemia, unspecified; F32.A Depression, unspecified; F10.10 Alcohol abuse, uncomplicated; Z88.6 Allergy status to analgesic agent; Z79.52 Long term (current) use of systemic steroids; Z79.810 Long term (current) use of selective estrogen receptor modulators (SERMs); Z79.899 Other long term (current) drug therapy

== ENCOUNTER → 2023-08-05 | Outpatient (CLI) | payer MEDICARE | LOC: M WHC 10:36 | PROVIDERS: ATTEND Internal Medicine | DX: Z12.31 Encounter for screening mammogram for malignant neoplasm of breast (principal); R92.1 Mammographic calcification found on diagnostic imaging of breast; R92.8 Other abnormal and inconclusive findings on diagnostic imaging of breast; R92.323 Mammographic fibroglandular density, bilateral breasts ==

== ENCOUNTER → 2023-08-19 | Outpatient (CLI) | payer MEDICARE | LOC: M WHC 08:54 | PROVIDERS: ATTEND Internal Medicine | DX: R92.8 Other abnormal and inconclusive findings on diagnostic imaging of breast (principal); Z53.9 Procedure and treatment not carried out, unspecified reason ==

== ENCOUNTER → 2023-09-06 | Outpatient (CLI) | payer MEDICARE | LOC: M WUC 11:18 | PROVIDERS: ATTEND Internal Medicine | DX: M25.551 Pain in right hip (principal); M76.891 Other specified enthesopathies of right lower limb, excluding foot ==

== ENCOUNTER → 2023-10-06 | Outpatient (CLI) | payer MEDICARE ==
[2023-10-06 12:07] LABS: BASO # 0.1 10^3/uL (0.0-0.2); EOS # 1.3 10^3/uL (0.0-0.5); EOS % 12.6 % (0.0-3.0); HEMATOCRIT 42.9 % (36.0-47.0); HEMOGLOBIN 13.8 g/dl (12.0-15.5); LYMPH # 2.6 10^3/uL (1.5-5.0); MEAN CORPUSCULAR HEMOGLOBIN 29.4 pg (27.0-33.0); MEAN CORPUSCULAR HGB CONC 32.2 g/dl (32.0-36.5); MEAN CORPUSCULAR VOLUME 91.5 fl (80.0-96.0); MONO # 0.5 10^3/uL (0.0-0.8); MONO % 4.9 % (2.0-8.0); NEUTROPHILS # 5.5 10^3/uL (1.5-8.5); NEUTROPHILS % 55.3 % (36.0-66.0); PLATELET COUNT, AUTOMATED 368 10^3/uL (150-450); RED BLOOD COUNT 4.69 10^6/uL (4.00-5.40); WHITE BLOOD COUNT 9.9 10^3/uL (4.0-10.0)
== END ==
LOC: M WUC 10:05
PROVIDERS: ATTEND Allergy & Immunology
DX: J45.40 Moderate persistent asthma, uncomplicated (principal); J30.1 Allergic rhinitis due to pollen; R53.81 Other malaise

== ENCOUNTER → 2023-10-07 | Outpatient (CLI) | payer MEDICARE | LOC: M PLAIMG 08:45 | PROVIDERS: ATTEND Allergy & Immunology | DX: J33.9 Nasal polyp, unspecified (principal); J32.8 Other chronic sinusitis ==

== ENCOUNTER → 2023-12-31 | Outpatient (CLI) | payer MEDICARE ==
[~2023-12-31] MED LIST changes: +AMOX875T2 PO; +BREO1INH3 INH; +BUTA-198 PO; +CHOL100012 PO; +DIPH1TAB81 PO; -DIPH2.5T15 PO; -DOXY20TA4 PO; +DOXY20TA6 PO; +DULO1CAP5 PO; -FLON1SPR; +FLON1SPR NARES; -LEVA1.2519; +LEVA1.2519 INH; +MS C15TA8 PO; +MSIR30TA PO; +OXYC1TAB23 PO; -ROSU10TA6 PO; +ROSU10TA61 PO; +ROSU5TAB40 PO; -ROSU5TAB5 PO; +SOMA350T PO; +VITA100093 PO
== END ==
LOC: M RAD 16:58
PROVIDERS: ATTEND Otolaryngology
DX: J32.9 Chronic sinusitis, unspecified (principal); R93.0 Abnormal findings on diagnostic imaging of skull and head, not elsewhere classified

== ENCOUNTER 2024-01-03 08:32 | Inpatient (IN) | payer MEDICARE ==
[2024-01-03] VITALS (9 sets, daily range): BP systolic 94–134; BP diastolic 50–70; TEMP 96.9–97; O2SAT 91–100
[~2024-01-03] VITALS: Ht 160 cm; Wt 81.4 kg
[~2024-01-03 08:32] MED LIST changes: -AMOX875T2 PO; -BREO1INH3 INH; -BUTA-198 PO; -CHOL100012 PO; -DULO1CAP5 PO; -MS C15TA8 PO; -MSIR30TA PO; -OXYC1TAB23 PO; -SOMA350T PO
[2024-01-03] MEDS ORDERED: BREO1INH3 INH (09:08)
[2024-01-03] MEDS ORDERED: DULO1CAP5 PO (09:08)
[2024-01-03] MEDS ORDERED: LR 1,000 ML IV SCH (09:20)
[2024-01-03] MEDS ORDERED: propofoL 200 MG/20 ML VIAL As Ordered ONE (10:53)
[2024-01-03] MEDS ORDERED: LIDOCAINE 2% 100MG/5ML SDV (FOR ANES.) As Ordered ONE (10:53)
[2024-01-03] MEDS ORDERED: dexmedeTOMIDine (4MCG/ML)200MCG/50ML BTL (PRECEDEX) As Ordered ONE (10:53)
[2024-01-03] MEDS ORDERED: ROCURONIUM BROMIDE 50MG/5ML VIAL As Ordered ONE (10:53)
[2024-01-03] MEDS ORDERED: fentaNYL 250 MCG/5 ML INJECTION As Ordered ONE (10:54)
[2024-01-03] MEDS: COCAINE 4% 4ML NASAL SOLUTION BTL As Ordered ONE (11:35)
[2024-01-03] MEDS ORDERED: ACETAMINOPHEN 1000MG 100ML IV BAG As Ordered ONE (12:22)
[2024-01-03] MEDS ORDERED: SUGAMMADEX SODIUM 500 MG/5 ML VIAL (BRIDION) As Ordered ONE (12:26)
[2024-01-03] MEDS: CLINDAMYCIN 900MG/50ML PREMIX BAG As Ordered ONE (12:54)
[2024-01-03] MEDS ORDERED: PHENYLephrine 500MCG 5ML (100MCG/ML) SYRINGE As Ordered ONE (13:13)
[2024-01-03] MEDS ORDERED: ePHEDrine SULFATE 25 MG/5 ML(5MG/ML) SYRINGE As Ordered ONE (13:13)
[2024-01-03] MEDS: OXYMETAZOLINE 0.05% NASAL SPRAY (AFRIN) As Ordered ONE (13:40)
[2024-01-03] MEDS: LIDOCAINE W/EPINEPHRINE 1% 20ML VIAL As Ordered ONE (13:40)
[2024-01-03] MEDS ORDERED: fentaNYL 100 MCG/2 ML INJECTION IV PRN (13:45)
[2024-01-03] MEDS: ONDANSETRON 4MG 2ML VIAL IV PRN (14:33)
[2024-01-03] MEDS ORDERED: ONDANSETRON 4MG 2ML VIAL IV PRN ×2 (14:55→15:45)
[2024-01-03] MEDS ORDERED: BENZONATATE 100MG CAPSULE PO PRN (15:05)
[2024-01-03] MEDS: LR 1,000 ML IV SCH (15:30)
[2024-01-03] MEDS: SCOPOLAMINE 1MG TRANSDERMAL PATCH TOP ONE (16:44)
[2024-01-03] MEDS: ACETAMINOPHEN TAB 650MG DOSE (2X325MG) PO PRN (18:47)
[2024-01-03] MEDS: FORMOTEROL FUMARATE 20 MCG/2 ML INHALATION SOLUTION (PERFOROMIST) INH SCH (18:57)
[2024-01-03] MEDS: BUDESONIDE 0.5 MG/2 ML INHALATION SUSPENSION NEB SCH (18:57)
[2024-01-03] MEDS ORDERED: FORMOTEROL FUMARATE 20 MCG/2 ML INHALATION SOLUTION (PERFOROMIST) INH SCH (20:00)
[2024-01-03] MEDS: CLINDAMYCIN 600 MG in IV 1 EA IV SCH (21:19)
[2024-01-03] MEDS: DOCUSATE SODIUM 100MG CAPSULE PO SCH (21:19)
[2024-01-04] VITALS (22 sets, daily range): BP systolic 93–126; BP diastolic 51–67; TEMP 98.1–99.6; O2SAT 86–99
[2024-01-04] MEDS: CEPACOL LOZENGE PO PRN (04:10)
[2024-01-04 04:55] LABS: BASO % 0.1 % (0.0-1.0); HEMATOCRIT 34.9 % (36.0-47.0); HEMOGLOBIN 11.4 g/dl (12.0-15.5); LYMPH # 1.6 10^3/uL (1.5-5.0); LYMPH % 13.9 % (24.0-44.0); MEAN CORPUSCULAR HEMOGLOBIN 29.9 pg (27.0-33.0); MEAN CORPUSCULAR HGB CONC 32.7 g/dl (32.0-36.5); MEAN CORPUSCULAR VOLUME 91.6 fl (80.0-96.0); MONO # 0.4 10^3/uL (0.0-0.8); MONO % 3.7 % (2.0-8.0); NEUTROPHILS # 9.7 10^3/uL (1.5-8.5); PLATELET COUNT, AUTOMATED 249 10^3/uL (150-450); RED BLOOD COUNT 3.81 10^6/uL (4.00-5.40); WHITE BLOOD COUNT 11.8 10^3/uL (4.0-10.0)
[2024-01-04 05:25] LABS: ALKALINE PHOSPHATASE 43 U/L (46-116); ALT/SGPT 19 U/L (7.0-40); AST/SGOT < 8 U/L (<34); BILIRUBIN,TOTAL 0.9 MG/DL (0.3-1.2); BLOOD UREA NITROGEN 13 MG/DL (9-23); CALCIUM LEVEL 8.8 MG/DL (8.3-10.6); CARBON DIOXIDE LEVEL 32 MMOL/L (20-31); CHLORIDE LEVEL 105 MMOL/L (98-107); CREATININE FOR GFR 0.74 MG/DL (0.55-1.30); GLOMERULAR FILTRATION RATE > 60.0 (>39); GLUCOSE, FASTING 134 MG/DL (74-106); POTASSIUM SERUM 4.4 MMOL/L (3.5-5.1); SODIUM LEVEL 141 MMOL/L (136-145); TOTAL PROTEIN 5.3 G/DL (5.7-8.2)
[2024-01-04] MEDS: MONTELUKAST 10 MG TAB PO SCH (08:01)
[2024-01-04] MEDS ORDERED: CHOL100012 PO (10:31)
[2024-01-04] MEDS ORDERED: HOME MED LIST COMPLETE! XX SCH (10:35)
[2024-01-04] MEDS: ANEXSIA, NORCO 7.5MG/325MG TABLET(HYDROCODONE/APAP) PO PRN (11:17)
[2024-01-04] MEDS: fentaNYL 100 MCG/2 ML INJECTION IV ONE (12:54)
[2024-01-04] MEDS: FIORICET TAB PO ONE (15:51)
[2024-01-04] MEDS ORDERED: FIORICET TAB PO PRN (17:25)
[2024-01-04] MEDS: DULoxetine 30MG CAPSULE (CYMBALTA) PO SCH (20:06)
[2024-01-05 03:30] VITALS: BP 117/59; TEMP 98.3; O2SAT 96
[2024-01-05 06:40] LABS: BASO % 0.2 % (0.0-1.0); EOS % 0.2 % (0.0-3.0); HEMATOCRIT 33.5 % (36.0-47.0); HEMOGLOBIN 10.8 g/dl (12.0-15.5); LYMPH % 15.4 % (24.0-44.0); MEAN CORPUSCULAR HEMOGLOBIN 29.9 pg (27.0-33.0); MEAN CORPUSCULAR HGB CONC 32.2 g/dl (32.0-36.5); MEAN CORPUSCULAR VOLUME 92.8 fl (80.0-96.0); MONO # 0.8 10^3/uL (0.0-0.8); MONO % 6.6 % (2.0-8.0); NEUTROPHILS # 9.8 10^3/uL (1.5-8.5); NEUTROPHILS % 77.1 % (36.0-66.0); PLATELET COUNT, AUTOMATED 213 10^3/uL (150-450); RED BLOOD COUNT 3.61 10^6/uL (4.00-5.40); WHITE BLOOD COUNT 12.7 10^3/uL (4.0-10.0)
[2024-01-05 07:28] VITALS: BP 104/54; TEMP 98; O2SAT 94
[2024-01-05 07:35] LABS: BLOOD UREA NITROGEN 13 MG/DL (9-23); CALCIUM LEVEL 8.6 MG/DL (8.3-10.6); CARBON DIOXIDE LEVEL 32 MMOL/L (20-31); CHLORIDE LEVEL 104 MMOL/L (98-107); CREATININE FOR GFR 0.71 MG/DL (0.55-1.30); GLOMERULAR FILTRATION RATE > 60.0 (>39); GLUCOSE, FASTING 118 MG/DL (74-106); MAGNESIUM LEVEL 1.8 MG/DL (1.8-2.4); POTASSIUM SERUM 4.1 MMOL/L (3.5-5.1); SODIUM LEVEL 140 MMOL/L (136-145)
[2024-01-05 07:51] LABS: PROCALCITONIN 0.05 ng/ml
[2024-01-05] MEDS: HEPARIN SOD (PORCINE) 5000UNITS/ML 1ML VIAL/SYRINGE SQ SCH (09:00)
[2024-01-05] MEDS: ROSUVASTATIN 10 MG TAB (CRESTOR) PO SCH (09:17)
[2024-01-05] MEDS ORDERED: AMOX875T2 PO ×2 (09:57→10:49)
[2024-01-05] MEDS ORDERED: BUTA-198 PO ×2 (09:57→10:49)
[2024-01-05 10:56] VITALS: O2SAT 91
== END 2024-01-05 12:30 | disposition home or self-care (01) | DRG 908 ==
LOC: M SDC 08:32 → M ICU 14:41 → M PCU 01-04 21:02
PROVIDERS: ADMIT Internal Medicine Pulmonary Disease; ATTEND Internal Medicine
PROC: 09TU8ZZ Resection of Right Ethmoid Sinus, Via Natural or Artificial Opening Endoscopic (ICD-10-PCS; 2024-01-03)
PROC: 09TV8ZZ Resection of Left Ethmoid Sinus, Via Natural or Artificial Opening Endoscopic (ICD-10-PCS; 2024-01-03)
PROC: 09BK8ZZ Excision of Nasal Mucosa and Soft Tissue, Via Natural or Artificial Opening Endoscopic (ICD-10-PCS; 2024-01-03)
PROC: 09UK87Z Supplement Nasal Mucosa and Soft Tissue with Autologous Tissue Substitute, Via Natural or Artificial Opening Endoscopic (ICD-10-PCS; principal; 2024-01-03 10:00)
DX: G97.41 Accidental puncture or laceration of dura during a procedure (principal); G96.08 Other cranial cerebrospinal fluid leak; J33.9 Nasal polyp, unspecified; J31.0 Chronic rhinitis; J32.9 Chronic sinusitis, unspecified; J45.909 Unspecified asthma, uncomplicated; E78.5 Hyperlipidemia, unspecified; M19.90 Unspecified osteoarthritis, unspecified site; G89.29 Other chronic pain; F32.A Depression, unspecified; Z88.6 Allergy status to analgesic agent; Z79.899 Other long term (current) drug therapy; K21.9 Gastro-esophageal reflux disease without esophagitis; Z87.891 Personal history of nicotine dependence; I10 Essential (primary) hypertension; R04.0 Epistaxis

== ENCOUNTER 2024-01-05 16:13 | Observation (INO) | payer MEDICARE ==
[~2024-01-05] VITALS: Ht 162.6 cm; Wt 81.3 kg
[~2024-01-05 16:13] MED LIST changes: +AMOX875T2 PO; +BREO1INH3 INH; +BUTA-198 PO; +CHOL100012 PO; +DULO1CAP5 PO
[2024-01-05] MEDS: NS 1,000 ML IV ONE (16:27)
[2024-01-05] MEDS: HYDROMORPHONE HCL 0.5 MG/ 0.5 ML SYRINGE IV ONE (16:27)
[2024-01-05] MEDS ORDERED: ISOVUE-370 76% 100ML VIAL As Ordered ONE (16:31)
[2024-01-05] MEDS: PROMETHAZINE 25MG/ML 1ML VIAL IM ONE (16:33)
[2024-01-05 16:43] LABS: BASO % 0.1 % (0.0-1.0); EOS # 0.1 10^3/uL (0.0-0.5); EOS % 0.4 % (0.0-3.0); HEMATOCRIT 36.8 % (36.0-47.0); LYMPH # 2.8 10^3/uL (1.5-5.0); LYMPH % 19.3 % (24.0-44.0); MEAN CORPUSCULAR HEMOGLOBIN 29.6 pg (27.0-33.0); MEAN CORPUSCULAR HGB CONC 32.6 g/dl (32.0-36.5); MEAN CORPUSCULAR VOLUME 90.6 fl (80.0-96.0); MONO # 0.7 10^3/uL (0.0-0.8); MONO % 4.6 % (2.0-8.0); NEUTROPHILS # 10.7 10^3/uL (1.5-8.5); NEUTROPHILS % 75.2 % (36.0-66.0); PLATELET COUNT, AUTOMATED 275 10^3/uL (150-450); RED BLOOD COUNT 4.06 10^6/uL (4.00-5.40); WHITE BLOOD COUNT 14.3 10^3/uL (4.0-10.0)
[2024-01-05] MEDS: PANTOPRAZOLE 40MG VIAL IV ONE (16:50)
[2024-01-05 16:55] LABS: INR 0.99; PROTHROMBIN TIME 12.8 SECONDS (12.5-14.5)
[2024-01-05 17:14] LABS: CK-MB VALUE MASS < 1.0 NG/ML (<3.6)
[2024-01-05 17:15] LABS: CPK CREATINE PHOSPHOKINASE 28 U/L (34-145); MB/CK RELATIVE INDEX 3.57 (< OR =4)
[2024-01-05] MEDS ORDERED: LORazepam 2 MG/ML 1ML VIAL IV STA (17:16)
[2024-01-05 17:21] LABS: ALBUMIN 3.6 G/DL (3.2-5.2); ALKALINE PHOSPHATASE 57 U/L (46-116); ALT/SGPT 27 U/L (7.0-40); AST/SGOT 14 U/L (<34); BILIRUBIN,TOTAL 1.3 MG/DL (0.3-1.2); BLOOD UREA NITROGEN 10 MG/DL (9-23); CALCIUM LEVEL 9.7 MG/DL (8.3-10.6); CARBON DIOXIDE LEVEL 29 MMOL/L (20-31); CHLORIDE LEVEL 104 MMOL/L (98-107); CREATININE FOR GFR 0.63 MG/DL (0.55-1.30); GLOMERULAR FILTRATION RATE > 60.0 (>39); GLUCOSE, FASTING 131 MG/DL (74-106); MAGNESIUM LEVEL 1.8 MG/DL (1.8-2.4); POTASSIUM SERUM 3.9 MMOL/L (3.5-5.1); SODIUM LEVEL 139 MMOL/L (136-145); TOTAL PROTEIN 6.3 G/DL (5.7-8.2)
[2024-01-05] MEDS: KETOROLAC 30 MG/ML 1ML VIAL IV ONE (17:21)
[2024-01-05] MEDS ORDERED: HYDROMORPHONE HCL 0.5 MG/ 0.5 ML SYRINGE IV ONE (17:25)
[2024-01-05] MEDS ORDERED: HOME MED LIST COMPLETE! XX SCH (18:05)
[2024-01-05] MEDS: ONDANSETRON 4MG 2ML VIAL IV ONE (19:51)
[2024-01-05] MEDS ORDERED: ALBUTEROL 90 MCG/ACT 8GM HFA INHALER INH PRN (20:00)
[2024-01-05] MEDS: DULoxetine 30MG CAPSULE (CYMBALTA) PO SCH (20:54)
[2024-01-05] MEDS: AUGMENTIN 875 MG TAB PO SCH (20:54)
[2024-01-05] MEDS: HYDROMORPHONE HCL 0.5 MG/ 0.5 ML SYRINGE IV PRN (20:54)
[2024-01-05 21:30] VITALS: BP 107/55; TEMP 97.7; O2SAT 94
[2024-01-05 22:10] VITALS: BP 140/73; TEMP 97.7; O2SAT 93
[2024-01-06] VITALS (8 sets, daily range): BP systolic 107–149; BP diastolic 56–78; TEMP 97.7–98.1; O2SAT 91–96
[2024-01-06] MEDS: ONDANSETRON 4MG 2ML VIAL IV PRN ×2 (01:30→16:23)
[2024-01-06] MEDS: PROMETHAZINE 25MG/ML 1ML VIAL IM ONE (05:21)
[2024-01-06] MEDS: HYDROMORPHONE HCL 0.5 MG/ 0.5 ML SYRINGE IV PRN (05:22)
[2024-01-06 07:17] LABS: VENOUS BASE EXCESS 1.9 (-2.0-2.0); VENOUS O2 SATURATION 99.1 % (60.0-80.0); VENOUS PARTIAL PRESSURE CO2 50.4 mmHg (38.0-50.0); VENOUS PH 7.362 UNITS (7.330-7.430); VENOUS STANDARD HCO3 26.2 MMOL/L; VENOUS TOTAL CO2 29.5 MMOL/L (24.0-28.0)
[2024-01-06 07:18] LABS: HEMOGLOBIN 10.6 g/dl (12.0-15.5); MEAN CORPUSCULAR HEMOGLOBIN 29.8 pg (27.0-33.0); MEAN CORPUSCULAR HGB CONC 32.1 g/dl (32.0-36.5); MEAN CORPUSCULAR VOLUME 92.7 fl (80.0-96.0); PLATELET COUNT, AUTOMATED 217 10^3/uL (150-450); RED BLOOD COUNT 3.56 10^6/uL (4.00-5.40); WHITE BLOOD COUNT 17.9 10^3/uL (4.0-10.0)
[2024-01-06] MEDS: ADVAIR HFA 230/21MCG INHALER INH SCH (07:35)
[2024-01-06 07:47] LABS: BLOOD UREA NITROGEN 13 MG/DL (9-23); CALCIUM LEVEL 8.4 MG/DL (8.3-10.6); CARBON DIOXIDE LEVEL 30 MMOL/L (20-31); CHLORIDE LEVEL 103 MMOL/L (98-107); GLOMERULAR FILTRATION RATE > 60.0 (>39); GLUCOSE, FASTING 128 MG/DL (74-106); MAGNESIUM LEVEL 1.8 MG/DL (1.8-2.4); POTASSIUM SERUM 4.2 MMOL/L (3.5-5.1); SODIUM LEVEL 138 MMOL/L (136-145)
[2024-01-06] MEDS: FUROSEMIDE 20MG/2ML VIAL IV ONE (07:56)
[2024-01-06] MEDS: CALCIUM CARBONATE 500 MG CHEW U/D PO SCH (09:33)
[2024-01-06] MEDS: ROSUVASTATIN 10 MG TAB (CRESTOR) PO SCH (09:33)
[2024-01-06] MEDS: MONTELUKAST 10 MG TAB PO SCH (09:33)
[2024-01-06] MEDS: ACETAMINOPHEN TAB 650MG DOSE (2X325MG) PO PRN (09:35)
[2024-01-06] MEDS: ONDANSETRON 4MG TAB PO PRN (20:49)
[2024-01-06] MEDS: FIORICET TAB PO PRN (20:49)
[2024-01-07] MEDS ORDERED: MIRALAX *UNIT DOSE* 17GM PACKET PO PRN (00:10)
[2024-01-07 04:34] VITALS: BP 141/72; TEMP 97.3; O2SAT 93
[2024-01-07] MEDS ORDERED: OXYC1TAB23 PO (07:21)
[2024-01-07 07:56] VITALS: BP 143/74; TEMP 97.7; O2SAT 96
[2024-01-07] MEDS: PERCOCET 5MG/325MG TAB PO PRN ×2 (08:13→15:46)
[2024-01-07] MEDS ORDERED: NALOXONE INJ 0.4MG/1ML VIAL IV PRN (10:40)
[2024-01-07] MEDS: KETOROLAC 30 MG/ML 1ML VIAL IV ONE (10:56)
[2024-01-07] MEDS: HYDROMORPHONE HCL 0.5 MG/ 0.5 ML SYRINGE IV ONE (10:57)
[2024-01-07 11:36] LABS: BASO % 0.2 % (0.0-1.0); EOS # 0.2 10^3/uL (0.0-0.5); EOS % 1.9 % (0.0-3.0); HEMATOCRIT 36.4 % (36.0-47.0); HEMOGLOBIN 11.4 g/dl (12.0-15.5); LYMPH # 1.2 10^3/uL (1.5-5.0); LYMPH % 11.5 % (24.0-44.0); MEAN CORPUSCULAR HEMOGLOBIN 29.2 pg (27.0-33.0); MEAN CORPUSCULAR HGB CONC 31.3 g/dl (32.0-36.5); MEAN CORPUSCULAR VOLUME 93.1 fl (80.0-96.0); MONO # 0.5 10^3/uL (0.0-0.8); MONO % 4.8 % (2.0-8.0); NEUTROPHILS # 8.5 10^3/uL (1.5-8.5); NEUTROPHILS % 81.1 % (36.0-66.0); PLATELET COUNT, AUTOMATED 243 10^3/uL (150-450); RED BLOOD COUNT 3.91 10^6/uL (4.00-5.40); WHITE BLOOD COUNT 10.5 10^3/uL (4.0-10.0)
[2024-01-07 11:53] LABS: ERYTHROCYTE SEDIMENTATION RATE 54 mm/hr (0-30)
[2024-01-07 11:59] LABS: BLOOD UREA NITROGEN 13 MG/DL (9-23); CALCIUM LEVEL 8.8 MG/DL (8.3-10.6); CARBON DIOXIDE LEVEL 32 MMOL/L (20-31); CHLORIDE LEVEL 103 MMOL/L (98-107); CREATININE FOR GFR 0.61 MG/DL (0.55-1.30); GLOMERULAR FILTRATION RATE > 60.0 (>39); GLUCOSE, FASTING 100 MG/DL (74-106); POTASSIUM SERUM 3.9 MMOL/L (3.5-5.1); SODIUM LEVEL 139 MMOL/L (136-145)
[2024-01-07 12:06] LABS: PROCALCITONIN <0.04 ng/ml
[2024-01-07 12:17] VITALS: BP 137/75; TEMP 96.8; O2SAT 95
[2024-01-07 16:14] VITALS: BP 141/75; TEMP 97.7; O2SAT 95
[2024-01-07 20:26] VITALS: BP 141/74; TEMP 97.5; O2SAT 95
[2024-01-07] MEDS: HYDROMORPHONE HCL 0.5 MG/ 0.5 ML SYRINGE IV PRN (23:56)
[2024-01-08 04:48] VITALS: BP 135/73; TEMP 97.5; O2SAT 96
[2024-01-08 06:00] LABS: BASO % 0.2 % (0.0-1.0); EOS # 0.3 10^3/uL (0.0-0.5); HEMATOCRIT 33.6 % (36.0-47.0); HEMOGLOBIN 10.8 g/dl (12.0-15.5); LYMPH # 0.9 10^3/uL (1.5-5.0); LYMPH % 7.3 % (24.0-44.0); MEAN CORPUSCULAR HEMOGLOBIN 29.5 pg (27.0-33.0); MEAN CORPUSCULAR HGB CONC 32.1 g/dl (32.0-36.5); MEAN CORPUSCULAR VOLUME 91.8 fl (80.0-96.0); MONO # 0.6 10^3/uL (0.0-0.8); MONO % 4.6 % (2.0-8.0); NEUTROPHILS # 10.6 10^3/uL (1.5-8.5); NEUTROPHILS % 85.6 % (36.0-66.0); PLATELET COUNT, AUTOMATED 265 10^3/uL (150-450); RED BLOOD COUNT 3.66 10^6/uL (4.00-5.40); WHITE BLOOD COUNT 12.4 10^3/uL (4.0-10.0)
[2024-01-08 06:26] LABS: BLOOD UREA NITROGEN 14 MG/DL (9-23); CALCIUM LEVEL 8.6 MG/DL (8.3-10.6); CARBON DIOXIDE LEVEL 32 MMOL/L (20-31); CHLORIDE LEVEL 102 MMOL/L (98-107); CREATININE FOR GFR 0.63 MG/DL (0.55-1.30); GLOMERULAR FILTRATION RATE > 60.0 (>39); GLUCOSE, FASTING 104 MG/DL (74-106); POTASSIUM SERUM 3.9 MMOL/L (3.5-5.1); SODIUM LEVEL 137 MMOL/L (136-145)
[2024-01-08] MEDS ORDERED: PILL CUTTER 1 EACH XX PRN ×2 (06:40→09:55)
[2024-01-08] MEDS: HYDROmorphone 2 MG TAB PO ONE (06:42)
[2024-01-08] MEDS: diazePAM 10MG/2ML SYRINGE IV ONE (07:25)
[2024-01-08] MEDS ORDERED: flumazeniL 0.5MG/5ML VIAL IV PRN (07:30)
[2024-01-08] MEDS ORDERED: NALOXONE INJ 0.4MG/1ML VIAL IV PRN (07:30)
[2024-01-08] MEDS: carisoprodoL 350 MG TAB PO ONE (07:31)
[2024-01-08] MEDS ORDERED: SOMA350T PO (07:32)
[2024-01-08] MEDS ORDERED: MSIR30TA PO (07:32)
[2024-01-08] MEDS ORDERED: MS C15TA8 PO (07:35)
[2024-01-08 08:24] VITALS: BP 160/84; TEMP 97; O2SAT 96
[2024-01-08] MEDS: MORPHINE 15 MG SA TAB PO SCH (09:05)
[2024-01-08] MEDS: KETOROLAC 30 MG/ML 1ML VIAL IV ONE (09:06)
[2024-01-08] MEDS: carisoprodoL 350 MG TAB PO PRN (11:38)
[2024-01-08 12:16] VITALS: BP 122/66; TEMP 97.9; O2SAT 90
[2024-01-08 16:00] VITALS: BP 141/75; TEMP 98.2; O2SAT 93
[2024-01-08] MEDS: MORPHINE 30 MG TAB **MSIR PO PRN (18:36)
[2024-01-08 20:08] VITALS: BP 153/77; TEMP 98.2; O2SAT 90
[2024-01-08] MEDS: diphenhydrAMINE 50MG/ML VIAL IV ONE (23:47)
[2024-01-08 23:58] VITALS: BP 149/77; TEMP 97.2; O2SAT 96
[2024-01-09] MEDS: LIDOCAINE 5% (LIDODERM) PATCH TD ONE ×2 (00:54)
[2024-01-09] MEDS: HYDROMORPHONE HCL 0.5 MG/ 0.5 ML SYRINGE IV ONE ×2 (00:55→08:19)
[2024-01-09] MEDS: KETOROLAC 30 MG/ML 1ML VIAL IV ONE ×2 (02:26→07:45)
[2024-01-09] MEDS ORDERED: HYDROmorphone HCL 2MG/ML 1ML VIAL IV PRN (03:00)
[2024-01-09 04:52] VITALS: TEMP 97.7; O2SAT 96
[2024-01-09 06:59] LABS: BASO % 0.2 % (0.0-1.0); EOS # 0.2 10^3/uL (0.0-0.5); EOS % 1.7 % (0.0-3.0); HEMATOCRIT 34.5 % (36.0-47.0); LYMPH # 0.7 10^3/uL (1.5-5.0); MEAN CORPUSCULAR HEMOGLOBIN 29.5 pg (27.0-33.0); MEAN CORPUSCULAR HGB CONC 31.9 g/dl (32.0-36.5); MEAN CORPUSCULAR VOLUME 92.5 fl (80.0-96.0); MONO # 0.5 10^3/uL (0.0-0.8); MONO % 5.1 % (2.0-8.0); NEUTROPHILS % 85.5 % (36.0-66.0); PLATELET COUNT, AUTOMATED 242 10^3/uL (150-450); RED BLOOD COUNT 3.73 10^6/uL (4.00-5.40); WHITE BLOOD COUNT 10.6 10^3/uL (4.0-10.0)
[2024-01-09 07:21] LABS: BLOOD UREA NITROGEN 13 MG/DL (9-23); CALCIUM LEVEL 8.9 MG/DL (8.3-10.6); CARBON DIOXIDE LEVEL 32 MMOL/L (20-31); CHLORIDE LEVEL 102 MMOL/L (98-107); CREATININE FOR GFR 0.67 MG/DL (0.55-1.30); GLOMERULAR FILTRATION RATE > 60.0 (>39); GLUCOSE, FASTING 107 MG/DL (74-106); POTASSIUM SERUM 3.8 MMOL/L (3.5-5.1); SODIUM LEVEL 139 MMOL/L (136-145)
[2024-01-09] MEDS: methylPREDNISolone 125MG 2ML VIAL IV ONE (07:44)
[2024-01-09] MEDS: TRIAMCINOLONE ACETONIDE 0.025% 80GM CREAM TOP ONE (07:46)
[2024-01-09 08:12] VITALS: BP 110/63; TEMP 97.9; O2SAT 90
[2024-01-09] MEDS: diazePAM 10MG/2ML SYRINGE IV ONE (08:18)
[2024-01-09] MEDS: diphenhydrAMINE 50MG/ML VIAL IV ONE (08:19)
[2024-01-10] MEDS ORDERED: UNRESOLVED CLARIFICATION ENTRY XX SCH (00:01)
== END 2024-01-09 09:00 | disposition other institution (70) ==
LOC: M ED 16:13 → EDBD 16:13 → M ED INP 16:14 → M MS5PR 22:00
PROVIDERS: ADMIT Preventive Medicine Undersea and Hyperbaric Medicine; ATTEND Preventive Medicine Undersea and Hyperbaric Medicine
DX: M51.36 Other intervertebral disc degeneration, lumbar region (principal); M48.062 Spinal stenosis, lumbar region with neurogenic claudication; M48.07 Spinal stenosis, lumbosacral region; M47.816 Spondylosis without myelopathy or radiculopathy, lumbar region; M54.59 Other low back pain; G89.29 Other chronic pain; G97.41 Accidental puncture or laceration of dura during a procedure; G96.08 Other cranial cerebrospinal fluid leak; J33.9 Nasal polyp, unspecified; J31.0 Chronic rhinitis; R04.0 Epistaxis; D62 Acute posthemorrhagic anemia; G93.89 Other specified disorders of brain; G97.82 Other postprocedural complications and disorders of nervous system; J34.89 Other specified disorders of nose and nasal sinuses; R21 Rash and other nonspecific skin eruption; M54.2 Cervicalgia; J45.909 Unspecified asthma, uncomplicated; E78.5 Hyperlipidemia, unspecified; F32.A Depression, unspecified; Z98.890 Other specified postprocedural states; R51.9 Headache, unspecified; I67.82 Cerebral ischemia; Z88.6 Allergy status to analgesic agent; Z88.8 Allergy status to other drugs, medicaments and biological substances; Z79.899 Other long term (current) drug therapy; Z79.891 Long term (current) use of opiate analgesic; Z79.51 Long term (current) use of inhaled steroids
CPT/HCPCS: 36415; 70450; 70487; 70551; 71045; 71275; 72128; 72131; 72148; 74174; 80047; 80048; 80053; 82550; 82553; 82803; 83605; 83735; 84484; 85025; 85027; 85610; 86140; 86850; 86900; 86901; 87040; 93005; 93041; 94640; 99285; C9113; G0378; J1170; J1885; J2405; J2550; Q9967

== ENCOUNTER → 2024-01-19 | Outpatient (CLI) | payer MEDICARE ==
[~2024-01-19] MED LIST changes: +MS C15TA8 PO; +MSIR30TA PO; +OXYC1TAB23 PO; +SOMA350T PO
[2024-01-19 15:10] LABS: BASO # 0.1 10^3/uL (0.0-0.2); BASO % 0.7 % (0.0-1.0); EOS # 0.2 10^3/uL (0.0-0.5); EOS % 2.5 % (0.0-3.0); HEMATOCRIT 39.4 % (36.0-47.0); HEMOGLOBIN 12.7 g/dl (12.0-15.5); LYMPH # 1.3 10^3/uL (1.5-5.0); LYMPH % 17.7 % (24.0-44.0); MEAN CORPUSCULAR HEMOGLOBIN 29.2 pg (27.0-33.0); MEAN CORPUSCULAR HGB CONC 32.2 g/dl (32.0-36.5); MEAN CORPUSCULAR VOLUME 90.6 fl (80.0-96.0); MONO # 0.5 10^3/uL (0.0-0.8); MONO % 6.3 % (2.0-8.0); NEUTROPHILS # 5.5 10^3/uL (1.5-8.5); NEUTROPHILS % 72.5 % (36.0-66.0); PLATELET COUNT, AUTOMATED 343 10^3/uL (150-450); RED BLOOD COUNT 4.35 10^6/uL (4.00-5.40); WHITE BLOOD COUNT 7.6 10^3/uL (4.0-10.0)
[2024-01-19 15:15] LABS: ERYTHROCYTE SEDIMENTATION RATE 24 mm/hr (0-30)
[2024-01-19 15:30] LABS: C REACTIVE PROTEIN QUANTITATIV < 0.40 MG/DL (<1.0)
[2024-01-19 15:32] LABS: ALBUMIN 3.6 G/DL (3.2-5.2); ALKALINE PHOSPHATASE 135 U/L (46-116); ALT/SGPT 83 U/L (7.0-40); AST/SGOT 14 U/L (<34); BILIRUBIN,TOTAL 0.5 MG/DL (0.3-1.2); BLOOD UREA NITROGEN 9 MG/DL (9-23); CALCIUM LEVEL 9.4 MG/DL (8.3-10.6); CARBON DIOXIDE LEVEL 30 MMOL/L (20-31); CHLORIDE LEVEL 104 MMOL/L (98-107); CREATININE FOR GFR 0.72 MG/DL (0.55-1.30); GLOMERULAR FILTRATION RATE > 60.0 (>39); GLUCOSE, FASTING 105 MG/DL (74-106); POTASSIUM SERUM 4.1 MMOL/L (3.5-5.1); SODIUM LEVEL 141 MMOL/L (136-145); TOTAL PROTEIN 6.3 G/DL (5.7-8.2)
== END ==
LOC: M LAB 14:11
PROVIDERS: ATTEND Internal Medicine
DX: E78.5 Hyperlipidemia, unspecified (principal); J32.9 Chronic sinusitis, unspecified

== ENCOUNTER 2024-01-20 10:43 | Outpatient (CLI) | payer MEDICARE ==
[2024-01-20 11:10] VITALS: BP 148/74; O2SAT 98
== END 2024-01-20 11:30 | disposition home or self-care (01) ==
LOC: M INFU 10:43
PROVIDERS: ATTEND Internal Medicine
DX: Z45.2 Encounter for adjustment and management of vascular access device (principal); G03.9 Meningitis, unspecified; G96.00 Cerebrospinal fluid leak, unspecified

== ENCOUNTER → 2024-03-21 | Outpatient (REF) | payer MEDICARE ==
[~2024-03-21] MED LIST changes: -FEXO-157 PO; +FEXO-63 PO
[2024-03-21 17:50] LABS: RSV AMPLIFICATION NEGATIVE (NEGATIVE)
== END ==
LOC: M LAB REF 16:23
PROVIDERS: ATTEND Internal Medicine
DX: R50.9 Fever, unspecified (principal); J06.9 Acute upper respiratory infection, unspecified

== ENCOUNTER → 2024-05-25 | Outpatient (CLI) | payer MEDICARE ==
[~2024-05-25] MED LIST changes: -ROSU20TA61 PO; +ROSU20TA86 PO
[2024-05-25 12:54] LABS: RSV AMPLIFICATION NEGATIVE (NEGATIVE)
== END ==
LOC: M PLAIMG 11:15
PROVIDERS: ATTEND Internal Medicine
DX: J18.9 Pneumonia, unspecified organism (principal); R05.9 Cough, unspecified

== ENCOUNTER → 2024-06-07 | Outpatient (CLI) | payer MEDICARE ==
[~2024-06-07] MED LIST changes: -ROSU5TAB40 PO; +ROSU5TAB49 PO
== END ==
LOC: M WHC 10:03
PROVIDERS: ATTEND Internal Medicine
DX: M85.89 Other specified disorders of bone density and structure, multiple sites (principal)

== ENCOUNTER → 2024-07-14 | Outpatient (CLI) | payer MEDICARE ==
[~2024-07-14] MED LIST changes: -ADV250INH INH; +ADVA1AER9 INH; -LEVA1.2519 INH; +LEVA1.2526 INH
[2024-07-14 17:09] LABS: BASO # 0.1 10^3/uL (0.0-0.2); BASO % 0.6 % (0.0-1.0); BASO % 0.7 % (0.0-1.0); EOS # 0.5 10^3/uL (0.0-0.5); EOS # 0.6 10^3/uL (0.0-0.5); EOS % 7.3 % (0.0-3.0); HEMATOCRIT 44.1 % (36.0-47.0); HEMATOCRIT 44.3 % (36.0-47.0); HEMOGLOBIN 13.8 g/dl (12.0-15.5); HEMOGLOBIN 13.9 g/dl (12.0-15.5); LYMPH # 1.7 10^3/uL (1.5-5.0); LYMPH # 1.9 10^3/uL (1.5-5.0); LYMPH % 22.6 % (24.0-44.0); LYMPH % 23.7 % (24.0-44.0); MEAN CORPUSCULAR HEMOGLOBIN 29.3 pg (27.0-33.0); MEAN CORPUSCULAR HGB CONC 31.2 g/dl (32.0-36.5); MEAN CORPUSCULAR HGB CONC 31.5 g/dl (32.0-36.5); MEAN CORPUSCULAR VOLUME 94.1 fl (80.0-96.0); MONO # 0.3 10^3/uL (0.0-0.8); MONO # 0.4 10^3/uL (0.0-0.8); MONO % 4.5 % (2.0-8.0); MONO % 4.9 % (2.0-8.0); NEUTROPHILS # 4.9 10^3/uL (1.5-8.5); NEUTROPHILS % 63.2 % (36.0-66.0); NEUTROPHILS % 65.1 % (36.0-66.0); PLATELET COUNT, AUTOMATED 282 10^3/uL (150-450); PLATELET COUNT, AUTOMATED 288 10^3/uL (150-450); RED BLOOD COUNT 4.64 10^6/uL (4.00-5.40); RED BLOOD COUNT 4.71 10^6/uL (4.00-5.40); WHITE BLOOD COUNT 7.6 10^3/uL (4.0-10.0); WHITE BLOOD COUNT 7.8 10^3/uL (4.0-10.0)
[2024-07-14 17:37] LABS: IMMUNOGLOBULIN A 77.7 MG/DL (40-350)
[2024-07-14 17:39] LABS: ALBUMIN 3.6 G/DL (3.2-5.2); ALKALINE PHOSPHATASE 67 U/L (35-104); ALT/SGPT 35 U/L (7.0-40); AST/SGOT 31 U/L (<34); BILIRUBIN,DIRECT 0.2 MG/DL (<0.4); BILIRUBIN,TOTAL 0.8 MG/DL (0.3-1.2); BLOOD UREA NITROGEN 13 MG/DL (9-23); CALCIUM LEVEL 9.4 MG/DL (8.3-10.6); CARBON DIOXIDE LEVEL 31 MMOL/L (20-31); CHLORIDE LEVEL 106 MMOL/L (98-107); COMPLEMENT C3 188.4 MG/DL (90.0-170.0); COMPLEMENT C4 25.9 MG/DL (12-36); GLOMERULAR FILTRATION RATE > 60.0 (>39); GLUCOSE, FASTING 100 MG/DL (74-106); IMMUNOGLOBULIN G 578 MG/DL (650-1600); POTASSIUM SERUM 4.5 MMOL/L (3.5-5.1); SODIUM LEVEL 146 MMOL/L (136-145); TOTAL PROTEIN 6.7 G/DL (5.7-8.2)
== END ==
LOC: M WUC 12:21
PROVIDERS: ATTEND Internal Medicine
DX: R76.8 Other specified abnormal immunological findings in serum (principal); M25.50 Pain in unspecified joint; J30.1 Allergic rhinitis due to pollen; J45.50 Severe persistent asthma, uncomplicated; R53.81 Other malaise; J32.9 Chronic sinusitis, unspecified

== ENCOUNTER → 2024-07-25 | Outpatient (REF) | payer MEDICARE ==
[2024-07-25 13:04] LABS: RSV AMPLIFICATION NEGATIVE (NEGATIVE)
== END ==
LOC: M LAB REF 12:12
PROVIDERS: ATTEND Internal Medicine
DX: R05.9 Cough, unspecified (principal)

== ENCOUNTER → 2024-07-28 | Outpatient (CLI) | payer MEDICARE | LOC: M WUC 15:27 | PROVIDERS: ATTEND Internal Medicine | DX: R05.3 Chronic cough (principal); J98.11 Atelectasis ==

== ENCOUNTER → 2024-08-08 | Outpatient (CLI) | payer MEDICARE ==
[~2024-08-08] MED LIST changes: -ALIG4CAP PO; +ALIG4CAP3 PO
== END ==
LOC: M PLAIMG 08:24
PROVIDERS: ATTEND Internal Medicine
DX: R05.3 Chronic cough (principal); Z90.49 Acquired absence of other specified parts of digestive tract; N28.1 Cyst of kidney, acquired

== ENCOUNTER → 2024-08-21 | Outpatient (CLI) | payer MEDICARE ==
[~2024-08-21] MED LIST changes: +METHACHOLINE KIT (6 VIAL.NEB PREMIX) INH ONE
== END ==
LOC: M CARPUL 09:42
PROVIDERS: ATTEND Internal Medicine
DX: R05.3 Chronic cough (principal)
CPT/HCPCS: 94070; 95070; J7674

== ENCOUNTER → 2024-08-24 | Outpatient (CLI) | payer MEDICARE ==
[~2024-08-24] MED LIST changes: -METHACHOLINE KIT (6 VIAL.NEB PREMIX) INH ONE
== END ==
LOC: M WHC 11:53
PROVIDERS: ATTEND Internal Medicine
DX: Z12.31 Encounter for screening mammogram for malignant neoplasm of breast (principal); R92.313 Mammographic fatty tissue density, bilateral breasts

== ENCOUNTER → 2024-09-12 | Outpatient (CLI) | payer MEDICARE | LOC: M WUC 14:35 | PROVIDERS: ATTEND Internal Medicine | DX: M25.50 Pain in unspecified joint (principal) ==

== ENCOUNTER → 2024-09-26 | Outpatient (REF) | payer MEDICARE | LOC: M SFHCRHEU 10:21 | PROVIDERS: ATTEND Internal Medicine | DX: D80.1 Nonfamilial hypogammaglobulinemia (principal) ==

== ENCOUNTER 2024-10-16 12:17 | Outpatient (CLI) | payer MEDICARE, OTHER ==
[~2024-10-16] VITALS: Ht 160 cm; Wt 80.0 kg
[2024-10-16] MEDS: MEPOLIZUMAB 100 MG SC ONE (13:21)
[2024-10-16 13:50] VITALS: BP 132/80; O2SAT 97
== END 2024-10-16 13:50 ==
LOC: M INFU 12:17
PROVIDERS: ATTEND Ophthalmology
DX: J33.9 Nasal polyp, unspecified (principal); Z88.6 Allergy status to analgesic agent; Z88.8 Allergy status to other drugs, medicaments and biological substances
CPT/HCPCS: 96372; J2182

== ENCOUNTER 2024-11-13 13:05 | Outpatient (CLI) | payer MEDICARE ==
[~2024-11-13] VITALS: Ht 160 cm; Wt 78.2 kg
[~2024-11-13 13:05] MED LIST changes: +MEPOLIZUMAB 100 MG/ML SC ONE
[2024-11-13] MEDS: MEPOLIZUMAB 100 MG/ML SC ONE (13:30)
== END 2024-11-13 13:35 | disposition home or self-care (01) ==
LOC: M INFU 13:05
PROVIDERS: ATTEND Ophthalmology
DX: J33.9 Nasal polyp, unspecified (principal); Z88.6 Allergy status to analgesic agent; Z88.8 Allergy status to other drugs, medicaments and biological substances
CPT/HCPCS: 96372; J2182

== ENCOUNTER 2024-12-11 12:44 | Outpatient (CLI) | payer MEDICARE ==
[~2024-12-11] VITALS: Ht 160 cm; Wt 79.5 kg
[~2024-12-11 12:44] MED LIST changes: +MORP-137 PO; -MSIR30TA PO
[2024-12-11 13:07] VITALS: BP 156/94; O2SAT 97
[2024-12-11] MEDS: MEPOLIZUMAB 100 MG/ML SC ONE (13:50)
== END 2024-12-11 13:54 | disposition home or self-care (01) ==
LOC: M INFU 12:44
PROVIDERS: ATTEND Ophthalmology
DX: J33.9 Nasal polyp, unspecified (principal); Z88.6 Allergy status to analgesic agent; Z88.8 Allergy status to other drugs, medicaments and biological substances
CPT/HCPCS: 96372; J2182

== ENCOUNTER 2025-02-05 12:59 | Outpatient (CLI) | payer MEDICARE ==
[~2025-02-05] VITALS: Ht 160 cm; Wt 77.7 kg
[~2025-02-05 12:59] MED LIST changes: -MEPOLIZUMAB 100 MG/ML SC ONE
[2025-02-05 13:15] VITALS: BP 144/73; O2SAT 97
[2025-02-05] MEDS: MEPOLIZUMAB 100 MG/ML SC ONE (13:50)
[2025-02-05 13:55] VITALS: BP 130/73; O2SAT 97
== END 2025-02-05 13:55 | disposition home or self-care (01) ==
LOC: M INFU 12:59
PROVIDERS: ATTEND Ophthalmology
DX: J33.9 Nasal polyp, unspecified (principal); Z88.6 Allergy status to analgesic agent
CPT/HCPCS: 96372; J2182

== ENCOUNTER → 2025-02-20 | Outpatient (CLI) | payer MEDICARE | LOC: M WUC 09:56 | PROVIDERS: ATTEND Student in an Organized Health Care Education/Training Program | DX: S80.861A Insect bite (nonvenomous), right lower leg, initial encounter (principal); W57.XXXA Bitten or stung by nonvenomous insect and other nonvenomous arthropods, initial encounter; Y92.9 Unspecified place or not applicable; Y93.9 Activity, unspecified; Y99.9 Unspecified external cause status ==

== ENCOUNTER 2025-03-05 13:09 | Outpatient (CLI) | payer MEDICARE ==
[2025-03-05 13:35] VITALS: BP 131/88; O2SAT 97
[2025-03-05] MEDS: MEPOLIZUMAB 100 MG/ML SC ONE (13:47)
== END 2025-03-05 13:50 ==
LOC: M INFU 13:09
PROVIDERS: ATTEND Ophthalmology
DX: J33.9 Nasal polyp, unspecified (principal); Z88.8 Allergy status to other drugs, medicaments and biological substances; Z88.6 Allergy status to analgesic agent
CPT/HCPCS: 96372; J2182

== ENCOUNTER 2025-04-06 10:01 | Outpatient (CLI) | payer MEDICARE ==
[~2025-04-06] VITALS: Ht 157.5 cm; Wt 79.0 kg
[2025-04-06 10:05] VITALS: BP 146/70; O2SAT 95
[2025-04-06] MEDS ORDERED: MEPOLIZUMAB 100 MG VIAL SC ONE (10:30)
[2025-04-06] MEDS: MEPOLIZUMAB 100 MG/ML SC ONE (10:56)
== END 2025-04-06 11:05 ==
LOC: M INFU 10:01
PROVIDERS: ATTEND Ophthalmology
DX: J33.9 Nasal polyp, unspecified (principal); Z88.6 Allergy status to analgesic agent
CPT/HCPCS: 96372; J2182

== ENCOUNTER 2025-05-04 10:15 | Outpatient (CLI) | payer MEDICARE ==
[~2025-05-04] VITALS: Ht 157.5 cm; Wt 77.7 kg
[2025-05-04 10:30] VITALS: BP 133/68; O2SAT 99
[2025-05-04] MEDS: [UNRECOGNIZED DRUG - OTHER] SC ONE (11:22)
[2025-05-04] MEDS: MEPOLIZUMAB 100 MG SC ONE (11:22)
== END 2025-05-04 11:25 ==
LOC: M INFU 10:15
PROVIDERS: ATTEND Allergy & Immunology
DX: J33.9 Nasal polyp, unspecified (principal)
CPT/HCPCS: 96372; J2182

== ENCOUNTER 2025-06-01 10:07 | Outpatient (CLI) | payer MEDICARE ==
[~2025-06-01] VITALS: Ht 157.5 cm; Wt 78.6 kg
[2025-06-01 10:10] VITALS: BP 145/68; O2SAT 97
[2025-06-01] MEDS: MEPOLIZUMAB 100 MG SC ONE (11:04)
[2025-06-01] MEDS: [UNRECOGNIZED DRUG - OTHER] SC ONE (11:04)
== END 2025-06-01 11:15 | disposition home or self-care (01) ==
LOC: M INFU 10:07
PROVIDERS: ATTEND Allergy & Immunology
DX: J33.9 Nasal polyp, unspecified (principal); Z88.8 Allergy status to other drugs, medicaments and biological substances; Z88.6 Allergy status to analgesic agent; D80.1 Nonfamilial hypogammaglobulinemia
CPT/HCPCS: 36415; 82784; 82787; 96372; J2182

== ENCOUNTER → 2025-06-01 | Outpatient (CLI) | payer MEDICARE ==
[~2025-06-01] MED LIST changes: -ROSU10TA61 PO; +ROSU10TA90 PO
[2025-06-05 11:47] LABS: IgG SERUM (part of Subclasses) 657.0 mg/dL (600-1540)
== END ==
LOC: M WUC 11:25
PROVIDERS: ATTEND Allergy & Immunology
DX: D80.1 Nonfamilial hypogammaglobulinemia (principal)

== ENCOUNTER → 2025-06-14 | Outpatient (REF) | payer MEDICARE ==
[2025-06-14 18:45] LABS: IRON (FE) 102.0 UG/DL (50-170)
[2025-06-14 18:46] LABS: PERCENT SATURATION 29.4 % (13.2-45.0)
== END ==
LOC: M LAB REF 17:45
PROVIDERS: ATTEND Internal Medicine
DX: K62.5 Hemorrhage of anus and rectum (principal); R19.4 Change in bowel habit

== ENCOUNTER 2025-06-29 10:00 | Outpatient (CLI) | payer MEDICARE ==
[~2025-06-29] VITALS: Ht 157.5 cm; Wt 79.5 kg
[2025-06-29 10:00] VITALS: BP 167/78; O2SAT 96
[2025-06-29] MEDS ORDERED: MEPOLIZUMAB 100 MG VIAL SC ONE (10:30)
[2025-06-29] MEDS: MEPOLIZUMAB 100 MG/ML SC ONE (11:03)
[2025-07-04] MEDS ORDERED: TREL1AER INH (09:02)
[2025-07-04] MEDS ORDERED: NUCA1INJ SC (09:06)
== END 2025-06-29 11:05 ==
LOC: M INFU 10:00
PROVIDERS: ATTEND Allergy & Immunology
DX: J33.9 Nasal polyp, unspecified (principal); Z88.6 Allergy status to analgesic agent; Z88.8 Allergy status to other drugs, medicaments and biological substances
CPT/HCPCS: 96372; J2182

== ENCOUNTER 2025-07-12 06:36 | Day surgery (SDC) | payer MEDICARE ==
[~2025-07-12] VITALS: Ht 157.5 cm; Wt 79.2 kg
[~2025-07-12 06:36] MED LIST changes: +NUCA1INJ SC; +TREL1AER INH
[2025-07-12] MEDS ORDERED: SIMETHICONE 40MG/0.6ML DROPS 30ML As Ordered ONE (06:47)
[2025-07-12] MEDS ORDERED: GLYCOPYRROLATE INJ 0.2 MG/ML 2 ML VIAL As Ordered ONE (07:26)
[2025-07-12] MEDS ORDERED: LIDOCAINE 2% 100 MG/5 ML SDV (FOR ANES.) As Ordered ONE (07:26)
[2025-07-12] MEDS ORDERED: ONDANSETRON 4MG/2ML VIAL As Ordered ONE (07:34)
[2025-07-12 08:00] VITALS: TEMP 99.4
[2025-07-12 08:20] VITALS: BP 146/76; O2SAT 95
== END 2025-07-12 08:22 | disposition home or self-care (01) ==
LOC: M OPP 06:36
PROVIDERS: ATTEND Surgery
DX: D12.6 Benign neoplasm of colon, unspecified (principal); K57.30 Diverticulosis of large intestine without perforation or abscess without bleeding; K64.8 Other hemorrhoids; R19.4 Change in bowel habit; Z88.6 Allergy status to analgesic agent; Z91.048 Other nonmedicinal substance allergy status; Z79.51 Long term (current) use of inhaled steroids; Z79.899 Other long term (current) drug therapy; J45.909 Unspecified asthma, uncomplicated
CPT/HCPCS: 45385; 88305; J1596; J2405